=== PATIENT | female | born 1980 ===

== ENCOUNTER 2017-05-21 04:58 | Inpatient (IN) | payer BC, OTHER ==
[2017-05-21] MEDS ORDERED: LIDOCAINE 1% (PF) 10 MG/ML (30 ML SDV) SQ PRN (05:51)
[2017-05-21] MEDS ORDERED: TERBUTALINE 1 MG/ML VIAL SQ PRN (05:51)
[2017-05-21] MEDS ORDERED: METHYLERGONOVINE 0.2 MG/ML 1 ML AMP IM PRN (05:51)
[2017-05-21] MEDS ORDERED: OXYTOCIN 10 UNIT/ML 1 ML VIAL IM PRN (05:51)
[2017-05-21] MEDS ORDERED: CARBOPROST TROMETHAMINE 250 MCG/ML 1 ML AMP IM PRN (05:51)
[2017-05-21] MEDS ORDERED: diphenhydrAMINE 50 MG/ML 1 ML VIAL IVP PRN ×2 (05:58)
[2017-05-21] MEDS ORDERED: SIMETHICONE 80 MG CHEWABLE PO PRN (05:58)
[2017-05-21] MEDS ORDERED: ZOLPIDEM 5 MG TAB PO PRN (05:58)
[2017-05-21] MEDS ORDERED: BENZOCAINE/MENTHOL SPRAY 1 GM/SPRAY AEROSOL TOPICAL PRN (05:58)
[2017-05-21] MEDS ORDERED: LANOLIN CREAM 5 GM TUBE TOPICAL PRN (05:58)
[2017-05-21] MEDS ORDERED: Acetaminophen-Codeine 300-30mg TAB PO PRN ×2 (05:58)
[2017-05-21] MEDS ORDERED: WITCH HAZEL 1 EACH MED..PAD TOPICAL PRN (05:58)
[2017-05-21] MEDS ORDERED: HYDROCORTISONE 2.5% RECTAL CREAM 30 GM TUBE RECTAL PRN (05:58)
[2017-05-21] MEDS ORDERED: ACETAMINOPHEN TAB 325 MG TAB PO PRN (05:58)
[2017-05-21] MEDS ORDERED: diphenhydrAMINE 50 MG CAP PO PRN (05:58)
[2017-05-21] MEDS ORDERED: diphenhydrAMINE 25 MG CAP PO PRN (05:58)
[2017-05-21] MEDS ORDERED: OXYTOCIN 20 UNITS/1000 ML NS 1,000 ML IV SCH (06:00)
[2017-05-21] MEDS ORDERED: LACTATED RINGERS 1,000 ML IV SCH (06:00)
--- NOTE | 2017-05-21 06:07 | P.HPOB ---
History of Present Illness H&P Date: 05/21/17 Chief Complaint: 39-3/7 weeks The patient is a 36-year-old 3 para 2001 admitted at 39-3/7 weeks as established by last menstrual period and confirmed by 19 week ultrasound. She is admitted in active labor with the head delivered as she presented to the floor. The nursing staff then shortly thereafter delivered the remainder of the without complications. The patient reportedly had onset of labor approximate 2 hours prior to presentation and rupture of membranes the shortly thereafter. Her has otherwise been uncomplicated though she carries a history of a previous section followed by successful vaginal after section and had requested trial of labor for this . Group B strep status was negative. Obstetrical history: 3 para 2001 with current statistics listed in history of present illness. She has a history of a previous delivery for breech in her first followed by successful vaginal after section in her second . EDC of 05/25/2017 was established by last menstrual period and confirmed by 19 week ultrasound. Laboratory workup demonstrates a blood type of A+ with a negative antibody screen. Rubella status is immune. The remainder of the laboratory workup was within normal limits. One hour Glucola was normal and group B strep status is negative. Gynecologic history: Unremarkable with no history of any infections to include STDs. Review of Systems Review of systems is confined to history of present illness. Past Medical History Past Medical History: No Reported History History of Any Multi-Drug Resistant Organisms: None Reported Past Surgical History: Section Additional Past Surgical History / Comment(s): c/s 2012 Past Anesthesia/Blood Transfusion Reactions: No Reported Reaction Past Psychological History: No Psychological Hx Reported Smoking Status: Never smoker Past Alcohol Use History: None Reported Past Drug Use History: None Reported - Past Family History Mother Family Medical History: No Reported History Medications and Allergies Home Medications Medication Instructions Recorded Confirmed Type Vsw-Wkac-Cujzx Acid 1 each PO DAILY 05/27/14 05/21/17 History [-U Capsule] Allergies Allergy/AdvReac Type Severity Reaction Status Date / Time Latex, Natural Rubber Allergy Itching Verified 05/27/14 05:11 Sulfa (Sulfonamide Allergy Unknown Verified 05/27/14 05:11 Antibiotics) Childhood Exam - Vital Signs Vital signs: Intake and Output 05/20/17 05/20/17 05/21/17 14:59 22:59 06:59 Other: Weight 71.214 kg Patient Weight 05/21/17 06:59 Weight 71.214 kg Nongravid, has normal active bowel sounds, is soft, nontender, and without any palpable masses aside from the uterine fundus which is tonic and nontender at or below the umbilicus. Her extremities are without any cyanosis, clubbing, or edema and are nontender to palpation bilaterally. Assessment and Plan (1) Precipitous delivery Current Visit: Yes Status: Acute Code(s): O62.3 - PRECIPITATE LABOR SNOMED Code(s): 709753451 (2) Active labor at term Current Visit: Yes Status: Acute Code(s): COK2818 - SNOMED Code(s): 59277477 (3) , delivered Current Visit: Yes Status: Acute Code(s): O34.21 - MATERNAL CARE FOR SCAR FROM PREVIOUS * DO NOT USE * SNOMED Code(s): 697734314 Plan: And has been admitted and delivered shortly after entry onto labor and delivery , the procedure carried out by the nursing staff in my absence. She is now admitted for management of delivery of the placenta and further care.
--- NOTE | 2017-05-21 06:11 | P.PROBDLV ---
Vaginal Delivery Note - . Vaginal Delivery Note: The patient is a 36-year-old 3 para 2001 admitted at 39-3/7 weeks by good dating parameters. She is admitted in active labor with the head already delivered upon entry onto the floor. The nursing staff then effected delivery of the remainder of the which apparently delivered in a compound presentation with the hand in front of and aside the head. I was called to the floor after the delivery had been affected in triage. I presented approximately 5-10 minutes later at which time the placenta had not yet been delivered. The placenta was delivered spontaneously, intact, and grossly normal with a grossly normal, centrally inserted three-vessel cord. Examination of the perineum demonstrated a moderate second-degree midline perineal laceration which was repaired in standard fashion using 3-0 chromic catgut over a 1% lidocaine block. There were no other apparent lacerations of the perineum, vagina, or cervix. There was no significant ongoing bleeding. Estimated blood loss was approximately 200 mL. There were no complications aside from the precipitous nature of the delivery itself. All sponge, instrument, and needle counts were correct. Both mother and infant are resting comfortably in recovery.
[2017-05-21 06:26] VITALS: BMI 26.9
[2017-05-21] MEDS: SENNOSIDES-DOCUSATE SODIUM 1 EACH TAB PO SCH ×2 (08:51→20:08)
[2017-05-21] MEDS: IBUPROFEN 600 MG TAB PO PRN (08:51)
[2017-05-22] MEDS: SENNOSIDES-DOCUSATE SODIUM 1 EACH TAB PO SCH (07:54)
--- NOTE | 2017-05-22 09:41 | P.PNOBGVD ---
Subjective - Subjective Patient reports: Reports appetite normal, Reports voiding normally, Reports pain well controlled, Reports ambulating normally : doing well, nursing well Objective - Latest Vital Signs Latest vital signs: Vital Signs Temp Pulse Resp BP 05/22/17 08:00 97.2 F L 80 16 109/59 05/22/17 04:00 16 05/22/17 00:00 98.2 F 79 16 98/64 05/21/17 20:00 98.2 F 82 16 105/66 05/21/17 16:00 98.3 F 84 20 98/56 05/21/17 12:00 98.6 F 79 20 101/60 Intake and Output 05/21/17 05/22/17 05/22/17 22:59 06:59 14:59 Intake Total 200 Balance 200 Intake: Oral 200 Other: # Voids 2 # Bowel Movements 1 - Exam Extremities: Present: normal Abdomen: Present: normal appearance, soft Uterus: Present: normal, firm (The uterine fundus is tonic and nontender below the umbilicus.) Assessment and Plan (1) Precipitous delivery Current Visit: Yes Status: Acute Code(s): O62.3 - PRECIPITATE LABOR SNOMED Code(s): 959256853 (2) Active labor at term Current Visit: Yes Status: Acute Code(s): YOU9032 - SNOMED Code(s): 77256986 (3) , delivered Current Visit: Yes Status: Acute Code(s): O34.21 - MATERNAL CARE FOR SCAR FROM PREVIOUS * DO NOT USE * SNOMED Code(s): 513881027 Plan: Continue routine care. I would anticipate discharge home tomorrow per the patient's wishes.
[2017-05-23] MEDS: IBUPROFEN 600 MG TAB PO PRN ×2 (01:03→09:26)
[2017-05-23] MEDS: SENNOSIDES-DOCUSATE SODIUM 1 EACH TAB PO SCH ×2 (02:59→09:27)
--- NOTE | 2017-05-23 09:01 | P.DS ---
Providers Date of admission: 05/21/17 04:58 Expected date of discharge: 05/23/17 Attending physician: Jim Moreno Primary care physician: Stated None Hospital Course: This is a 36yo that presented to triage in activelabor on . she delivered precipitously in triage. male delivered at 500 weight 7- 14 with apgars of 7-9 at one and 5 minutes respectively. Her course has been uneventful and on this PPD #2 she desires d/c home. she is breast feeding without difficulty, tolerating a regular diet, wihtout n/v. lochia is moderate. Patient Condition at Discharge: Good Plan - Discharge Summary New Discharge Prescriptions: No Action Jzp-Pkss-Qggnb Acid [-U Capsule] 1 each PO DAILY Discharge Medication List Kmv-[id number]-Rhbpk Acid [-U Capsule] 1 each PO DAILY 05/27/14 [ History] Follow up Appointment(s)/Referral(s): Jim Moreno MD [STAFF PHYSICIAN] - 6 Weeks Discharge Disposition: HOME SELF-CARE
[2017-05-23 09:36] VITALS: BP 108/63; PULSE 76; RESP 17; TEMP 98.4
== END 2017-05-23 11:25 | disposition home or self-care (01) | DRG 775 ==
LOC: 4FBP 04:58
PROVIDERS: ADMIT Obstetrics & Gynecology; ATTEND Obstetrics & Gynecology
DX: O62.3 Precipitate labor (principal); O32.6XX0 Maternal care for compound presentation, not applicable or unspecified; O34.219 Maternal care for unspecified type scar from previous cesarean delivery; Z37.0 Single live birth; O70.1 Second degree perineal laceration during delivery; Z3A.39 39 weeks gestation of pregnancy; Z88.2 Allergy status to sulfonamides; Z91.040 Latex allergy status
CPT/HCPCS: 88307

== ENCOUNTER → 2021-02-27 | Outpatient (CLI) | payer BC ==
--- NOTE | 2021-02-27 09:14 | CT ---
EXAMINATION TYPE: CT iac wo con DATE OF EXAM: 02/27/2021 COMPARISON: None HISTORY: Lt sided hearing loss CT DLP: 217mGycm Automated exposure control for dose reduction was used. FINDINGS: The external auditory canals are patent bilaterally. Mastoid air cells show moderate opaci fication on the left. Right mastoid air cells are clear. Prominent cisterna magna incidentally noted The middle ear ossicles are symmetric and unremarkable. There is no evidence of suspicious surroundi ng soft tissue density to suggest cholesteatoma. The scutum is preserved bilaterally. The cochlea and the semicircular canals are symmetric and unremarkable. Vestibular aqueduct and inte rnal carotid canal appear unremarkable. Temporomandibular joints are maintained bilaterally. There is mucosal thickening involving the maxillary sinuses and visualized ethmoid air cells with kelvin al septal deviation. IMPRESSION: 1. Moderate left mastoiditis. 2. Chronic sinusitis.
== END | disposition home or self-care (01) ==
LOC: RADCTMAIN 08:32
PROVIDERS: ATTEND Otolaryngology
DX: H70.92 Unspecified mastoiditis, left ear (principal); J32.9 Chronic sinusitis, unspecified
CPT/HCPCS: 70480

== ENCOUNTER 2021-04-25 08:52 | Day surgery (SDC) | payer BC ==
[2021-04-22 14:27] VITALS: BMI 22.3
[~2021-04-25 08:52] MED LIST: DEXAMETHASONE SOD PHOSPHATE 4 MG/ML 1 ML VIAL IV ONE; DEXAMETHASONE SOD PHOSPHATE 4 MG/ML 1 ML VIAL IV PRN; FAMOTIDINE 20 MG/2 ML VIAL IV PRN; HYDROmorphone 0.5 MG/0.5 ML SYRINGE IVP PRN; LACTATED RINGERS 1,000 ML IV SCH; LIDOCAINE 1% (10MG/ML) FOR IV START INTRADERMA PRN; MIDAZOLAM 2 MG/2 ML VIAL IV PRN; ONDANSETRON 4 MG/2 ML VIAL IVP ONE; ONDANSETRON 4 MG/2 ML VIAL IVP PRN
[2021-04-25] MEDS ORDERED: SCOPOLAMINE 1.5MG/72HR PATCH TRANSDERM ONE (09:33)
[2021-04-25] MEDS ORDERED: PHENYLEPHRINE-0.9% NACL SYG 1,000 MCG/10 ML SYRINGE ONE (11:20)
[2021-04-25] MEDS ORDERED: PROPOFOL 10 MG/ML 20 ML VIAL IV ONE (11:20)
[2021-04-25] MEDS ORDERED: MIDAZOLAM 2 MG/2 ML VIAL ONE (11:20)
[2021-04-25] MEDS ORDERED: LIDOCAINE 1% INJ 10MG/ML (20 ML MDV) ONE (11:20)
[2021-04-25] MEDS ORDERED: .fentaNYL (PF) 50 MCG/ML 2 ML AMP ONE (11:20)
[2021-04-25] MEDS ORDERED: SUCCINYLCHOLINE CHLORIDE 100 MG/5 ML SYR IV ONE (11:20)
[2021-04-25] MEDS ORDERED: LIDOCAINE 1%-EPI 1:100,000 20 ML VIAL SQ ONE (11:24)
[2021-04-25] MEDS ORDERED: CIPROFLOXACIN-DEXAMETH 0.3-0.1% DROPS 7.5 ML BTL LEFT EAR ONE (11:53)
[2021-04-25] MEDS ORDERED: OXYMETAZOLINE 0.05% NASL SPRAY 1 SPRAY BOTTLE EA NOSTRIL ONE (11:58)
[2021-04-25] MEDS ORDERED: LACTATED RINGERS 1,000 ML IV ONE (12:10)
--- NOTE | 2021-04-25 12:33 | P.OP ---
Date of Procedure: 04/25/21 Preoperative Diagnosis: LEFT chronic serous otitis media with retraction pocket LEFT Eustachian tube obstruction Nasopharyngeal mass LEFT conductive hearing loss Postoperative Diagnosis: Same Procedure(s) Performed: Left direct microscopic tympanostomy and tube placement utilizing a triune tube Left endoscopic ballooneustachian tuboplasty Endoscopic biopsy of nasopharyngeal mass Anesthesia: MAHAMED Surgeon: Robert Jensen Estimated Blood Loss (ml): 0 Pathology: other (Nasopharyngeal biopsy sent) Condition: stable Disposition: PACU Indications for Procedure: This patient presented with a left-sided conductive hearing loss and eustachian tube obstruction. We treated her conservatively with medications with no improvement. We did do a CAT scan because of the severe retraction and a retraction pocket of the CAT scan did not show any evidence of cholesteatoma. The patient did have evidence of chronic left-sided mastoiditis. In addition she was found have a cisterna magna and neurologic consultation was requested. Regarding surgery, all risks, benefits and alternative therapies were discussed in detail. Consent was obtained and all questions were answered. Operative Findings: Patient had a severe left atrophic tympanic membrane with a serous fluid present. Eustachian tube on the left side has adhesions and purulence in the tubal orifice. And nasopharyngeal exuberant lymphoid mass was noted and was biopsied. Description of Procedure: This patient was taken to the operative room and placed in the supine position. A general inhalation anesthetic was administered to the patient by mask and subsequently intubated with a cuffed endotracheal tube by the department of anesthesia with a functioning IV line in place. The patient was monitored throughout the entire case by the department of anesthesia. The left ear was visualized with a 250 mm Zeiss microscope and cerumen and epithelial debris was removed from the ear canal. The left tympanic membrane showed a retraction pocket posteriorly and the eardrum was severely retracted with fluid present. The eardrum was extremely atrophic. A tympanostomy incision was made anteriorly and inferiorly and the middle ear was lavaged and a triune tube was placed under direct microscopic visualization. The eardrum was extremely thin and atrophic. After tube placement entered the nose with a 0 Block johnny endoscope and visualize the nasopharyngeal region. An a Harinder balloon was placed into the eustachian tube in standard insufflation was performed to the left eustachian tube. Patient tolerated this well and the balloon was removed. We visualized the nasopharynx and the nasopharyngeal lymphoid tissue appeared to be exuberant. A biopsy was performed. His was done under visualization with the 0 Block johnny endoscope. Excellent result was obtained and the bleeding stopped spontaneously. Follow-up will be in the office in 1 week. The patient is to contact me if any problems should arise.
[2021-04-25 12:34] VITALS: TEMP 97.2
[2021-04-25 13:52] VITALS: RESP 14
[2021-04-25 15:05] VITALS: BP 112/78; PULSE 48
== END 2021-04-25 15:30 | disposition home or self-care (01) ==
LOC: OR 08:52
PROVIDERS: ATTEND Otolaryngology
DX: H90.2 Conductive hearing loss, unspecified (principal); H68.102 Unspecified obstruction of Eustachian tube, left ear; J39.2 Other diseases of pharynx; J32.8 Other chronic sinusitis; H70.12 Chronic mastoiditis, left ear; J34.3 Hypertrophy of nasal turbinates; J34.2 Deviated nasal septum; H68.1 Obstruction of Eustachian tube; Z80.0 Family history of malignant neoplasm of digestive organs; F17.200 Nicotine dependence, unspecified, uncomplicated; Z79.52 Long term (current) use of systemic steroids; Z91.040 Latex allergy status; Z88.2 Allergy status to sulfonamides; Z91.018 Allergy to other foods
CPT/HCPCS: 81025; 88305; 69436; 69799; C1726; J2250; J1100; J2405; J0690; J2001; J3010; J2370; J0330; J2704; J1170

== ENCOUNTER 2022-02-27 07:25 | Day surgery (SDC) | payer BC ==
[~2022-02-27 07:25] MED LIST changes: -DEXAMETHASONE SOD PHOSPHATE 4 MG/ML 1 ML VIAL IV PRN; -ONDANSETRON 4 MG/2 ML VIAL IVP PRN; +Pre Op ABX Message 1 EACH MISC MISCELLANE ONE
[2022-02-27] MEDS ORDERED: fentaNYL (PF) 50 MCG/ML 2 ML AMP ONE (08:45)
[2022-02-27] MEDS ORDERED: LIDOCAINE 2% INJ 20 MG/ML (2 ML VIAL) ONE (08:45)
[2022-02-27] MEDS ORDERED: MIDAZOLAM 2 MG/2 ML VIAL ONE (08:45)
[2022-02-27] MEDS ORDERED: PROPOFOL 10 MG/ML 20 ML VIAL IV ONE (08:45)
[2022-02-27] MEDS ORDERED: CIPROFLOXACIN-DEXAMETH 0.3-0.1% DROPS 7.5 ML BTL LEFT EAR ONE ×3 (08:57→09:13)
[2022-02-27 09:39] VITALS: TEMP 97.1
--- NOTE | 2022-02-27 09:48 | P.OP ---
Date of Procedure: 02/27/22 Preoperative Diagnosis: Chronic serous otitis media left ear with conductive hearing loss and a myringoincudostapedial pexy Postoperative Diagnosis: Same Procedure(s) Performed: A left direct microscopic tympanostomy and tube placement utilizing a T-tube Anesthesia: MAHAMED Estimated Blood Loss (ml): 0 Pathology: none sent Condition: stable Disposition: PACU Indications for Procedure: This patient had a need for repeat tympanostomy and tube placement. She has a continued middle ear effusion on the left side and has had persistent left eustachian tube dysfunction. She admits to ear pain pressure and fullness to the left ear. She tells me that in the last 2 days she's had a significant drop in her hearing on the left side with associated vertigo. She is very motivated to having a left tube placed. Operative Findings: The middle ear effusion was purulent. The tympanic membrane was severely retracted. The tympanic membrane was attached to the bones of the middle ear. Description of Procedure: The patient was taken to the operative room and placed in the supine position. A general inhalation anesthetic was administered to the patient and had a LMA inserted. The left ear was visualized with a variable focal length Zeiss microscope and the tympanic membrane was evaluated thoroughly. There was severe retraction and the tympanic membrane was attached to the promontory and the bones of the middle ear. A tympanostomy incision was made anteriorly inferiorly and thick purulent material was suctioned. A T-tube was inserted and excellent placement was obtained. The tube was placed near the annulus on the inferior anterior aspect of the left tympanic membrane. The patient tolerated this well and follow-up will be in the office in 1 week for recheck. Patient is to contact me if any problems should arise.
[2022-02-27 09:49] VITALS: RESP 16
[2022-02-27 10:50] VITALS: BP 98/63; PULSE 62
== END 2022-02-27 11:07 | disposition home or self-care (01) ==
LOC: OR 07:25
PROVIDERS: ATTEND Otolaryngology
DX: H65.22 Chronic serous otitis media, left ear (principal); H90.2 Conductive hearing loss, unspecified; F17.200 Nicotine dependence, unspecified, uncomplicated; K21.9 Gastro-esophageal reflux disease without esophagitis; Z91.040 Latex allergy status; Z88.2 Allergy status to sulfonamides
CPT/HCPCS: 81025; 69421; J2250; J1100; J2405; J3010; J2704; J2001

== ENCOUNTER → 2024-01-20 | Outpatient (CLI) | payer BC ==
--- NOTE | 2024-01-21 14:32 | MM ---
Reason for Exam: Screening (asymptomatic). Baseline mammogram. Patient History: Menarche at age 16. First Full-Term at age 32. Late child-bearing (after 32). Premenopausal. Paternal grandmother had breast cancer. Last menstrual period: 01/06/2024 Risk Values: Jaclyn 5 year model risk: 0.8%. NCI Lifetime model risk: 12.4%. Prior Study Comparison: Patient's first Mammogram. Tissue Density: The breasts are heterogeneously dense, which may obscure small masses. Findings: Analyzed By CAD. There is no suspicious group of microcalcifications or new suspicious mass in either breast. Overall Assessment: Benign, BI-RAD 2 Management: Screening Mammogram of both breasts in 1 year. . Patient should continue monthly self-breast exams. A clinical breast exam by your physician is recommended on an annual basis. This exam should not preclude additional follow-up of suspicious palpable abnormalities. Note on Jaclyn scores and lifetime risk: 1. A Jaclyn score greater than 3% is considered moderate risk. If this is the case, consider specialist referral to assess eligibility for a risk reducing agent. 2. If overall lifetime risk for the development of breast cancer is 20% or higher, the patient may qualify for future screening with alternating mammogram and breast MRI. Electronically signed and approved by: Lazaro Aparicio M.D. [facility]
== END | disposition home or self-care (01) ==
LOC: RADMAMWWP 09:50
PROVIDERS: ATTEND Obstetrics & Gynecology
DX: Z12.31 Encounter for screening mammogram for malignant neoplasm of breast
CPT/HCPCS: 77063; 77067